=== PATIENT | male | born 1995 | race Caucasian/White ===

== ENCOUNTER 2023-08-25 13:13 | Outpatient (CLI) | payer MEDICARE ==
--- NOTE | 2023-08-25 16:59 | XRAY Report ---
PROCEDURE: Spine Entire AP/LAT INDICATIONS: DORSALGIA, UNSPECIFIED TECHNIQUE: AP and lateral views of the cervical spine, thoracic spine, and lumbar spine were acquired . Additional open-mouth odontoid view of the cervical spine was acquired. COMPARISON: None. FINDINGS: No fractures or dislocations can be seen. The spinal alignment is considered to be normal, with note made of minimal levoconvex lumbar sclerotic curvature, which is considered to be within physiologic l imits. No significant AP alignment abnormality can be seen. The disc spaces are relatively well-preserved. A mild degree of facet arthropathy is seen inferiorly. No suspicious lytic or blastic lesions are seen. 12 pairs of ribs can be seen, the visualized portions appear normal. The visualized soft tissues are unremarkable. No cardiomegaly. Nonobstructive bowel gas pattern. IMPRESSION: Spine plain films within normal limits, with minimal levoconvex lumbar sclerotic curvature, which is considered to be within physiologic limits. If clinically appropriate, an MRI through the area of greatest concern could be considered for furthe r evaluation. (assuming that there is no contraindication). Reviewed by: eDz Bush MD on 08/25/2023 3:57 PM [facility] Approved by: Dez Bush MD on 08/25/2023 3:57 PM [facility] Station ID: [id number]
== END 2023-08-25 13:14 | disposition home or self-care (01) ==
LOC: DI 13:13
PROVIDERS: ATTEND Student in an Organized Health Care Education/Training Program
DX: M54.9 Dorsalgia, unspecified (principal)

== ENCOUNTER 2024-03-21 15:00 | Outpatient (CLI) | payer MEDICARE ==
--- NOTE | 2024-03-22 16:56 | Ultrasound Report ---
PROCEDURE: Bladder INDICATIONS: POLYURIA, NOCTURIA, PENILE DISCOMFORT TECHNIQUE: Real-time scanning was performed of the kidneys and bladder, with image documentation. COMPARISON: None FINDINGS: Bladder: Pre-void bladder volume is 239 mL. Post-void residual is 65 mL. Pre-void images demonstra te no intraluminal masses or stones. On pre-void images, bilateral ureteral jets are noted with colo r Doppler interrogation. (Of note, ureteral jets may not be detectable in up to 25% of cases due to insufficient differences in specific gravity between ureteral and bladder urine). Miscellaneous: No free pelvic fluid. Prostate measures 3.8 x 3.5 x 3.4 cm (volume 23.5 mL). IMPRESSION: 1.Normal sonographic appearance of the bladder. 2.Post void residual is 65 mL. 3.Normal prostate size with volume of 23.5 mL. Reviewed by: Lashonda Mckeon MD on 03/22/2024 4:55 PM PDT Approved by: Lashonda Mckeon MD on 03/22/2024 4:55 PM PDT Station ID: [id number]
== END 2024-03-21 15:01 | disposition home or self-care (01) ==
LOC: DI 15:00
PROVIDERS: ATTEND Family Medicine
DX: R35.89 Other polyuria (principal); R35.1 Nocturia; N48.89 Other specified disorders of penis